=== PATIENT | female | born 1975 | race Caucasian/White ===

== ENCOUNTER 2017-11-03 11:29 | Day surgery (SDC) | payer OTHER ==
[~2017-11-03] VITALS: Ht 162.6 cm; Wt 135.2 kg
[~2017-11-03 11:29] MED LIST: ALBU90OI INH; ALBU90OI61 INH; ALPR.5 PO; AMOCLA875 PO; AZIT250 PO; Amoxicillin500 MG PO; BENZ100A PO; BUSP5 PO; Benadryl 50 mg50 MG PO; Buspirone HCl7.5 MG PO; CLAR500 PO; CODGUAEL PO; CRUTCH4 XX; CYCL10 PO; CYMBALTA; Crutch1 EACH MISC; DIVA250EC PO; DOXY100 PO; ERGO400 PO; ERYT.5TO OS; ESCI10 PO; ESCI20 PO; FERR325 PO; GUAI120S1 PO; GUAI600T33 PO; HYDACE5 PO; HYDMOR2 PO; HYDPAM100 PO; HYDR1TAB94 PO; IBUP600 PO; IBUP800 PO; INHALER; KETO10 PO; LORA1 PO; METF500 PO; MUPI2TO TOP; NAPR500 PO; Norco 10-325 T1 EACH PO; PHENERMINE; PRED20 PO; PROCODE120 PO; Percocet 5-3251 EACH PO; Prednisone20 MG PO; QUET100 PO; RXHYDMOR2 PO; RXTRAM50 PO; SULI150 PO; SUMA25 PO; Seroquel Xr50 MG PO; TRAM50 PO; TRAZ50 PO; Ultram50 MG PO; Veetids 500500 MG PO; Zithromax250 MG PO; Zofran Odt4 MG SL
[2017-11-03 13:33] LABS: BASOPHILS ABSOLUTE AUTO 0.02 K/mm3 (0.00-0.23); BASOPHILS PERCENT AUTO 0 % (0-2); EOSINOPHILS ABSOLUTE AUTO 0.12 K/mm3 (0.00-0.68); EOSINOPHILS PERCENT AUTO 2 % (0-6); Hematocrit 43.1 % (33.0-51.0); Hemoglobin 13.9 g/dL (11.5-16.0); IMMATURE GRAN ABSOLUTE AUTO 0.01 K/mm3 (0.00-0.10); IMMATURE GRAN PERCENT AUTO 0 % (0-1); LYMPHOCYTES ABSOLUTE AUTO 2.64 K/mm3 (0.84-5.20); LYMPHOCYTES PERCENT AUTO 32 % (21-46); MONOCYTES ABSOLUTE AUTO 0.54 K/mm3 (0.16-1.47); MONOCYTES PERCENT AUTO 7 % (4-13); Mean Corpuscular HGB 28.1 pg (26.0-34.0); Mean Corpuscular HGB Conc 32.3 g/dL (31.5-36.5); Mean Corpuscular Volume 87 fL (80-100); Mean Platelet Volume 10.8 fL (9.1-12.4); NEUTROPHILS ABSOLUTE AUTO 4.85 K/mm3 (1.96-9.15); NEUTROPHILS PERCENT AUTO 59 % (41-73); Platelet Count 269 K/mm3 (150-400); RDW Coefficient Variation 13.6 % (11.7-14.2); RDW Standard Deviation 43.8 fL (35.1-46.3); Red Blood Cell Count 4.94 M/mm3 (3.80-5.20); White Blood Cell Count 8.18 K/mm3 (4.00-11.30)
[2017-11-03 13:56] LABS: Alanine Aminotransfer (ALT/SGP 20 U/L (12-78); Albumin, Blood 3.3 g/dL (3.4-5.0); Albumin/Globulin Ratio 0.8 (0.8-1.8); Alk Phos 73 U/L (50-136); Anion Gap 4 mmol/L (6-16); Aspartate Aminotrans (AST/SGOT 18 U/L (12-37); Bilirubin, Total 0.5 mg/dL (0.1-1.0); Blood Urea Nitrogen 15 mg/dL (8-24); Bun/Creatinine Ratio 18.5 (12.0-20.0); CO2, Blood 30 mmol/L (21-32); Calcium, Blood 9.1 mg/dL (8.5-10.1); Chloride, Blood 104 mmol/L (98-108); Creatinine, Blood 0.81 mg/dL (0.40-1.00); Globulin, Blood 4.3 g/dL (2.2-4.0); Glomerular Filtration Rate >60 (60-); Glucose, Blood 88 mg/dL (70-99); Potassium, Blood 4.3 mmol/L (3.5-5.5); Sodium, Blood 138 mmol/L (136-145); Total Protein, Blood 7.6 g/dL (6.4-8.2)
== END 2017-11-03 13:41 | disposition home or self-care (01) ==
LOC: ORSCMMR 11:29
PROVIDERS: Internal Medicine Gastroenterology
PROC: 0DB58ZX Excision of Esophagus, Via Natural or Artificial Opening Endoscopic, Diagnostic (ICD-10-PCS; principal; 2017-11-03 13:00)
DX: R13.10 Dysphagia, unspecified (principal); K22.10 Ulcer of esophagus without bleeding; K29.80 Duodenitis without bleeding; K44.9 Diaphragmatic hernia without obstruction or gangrene; E66.01 Morbid (severe) obesity due to excess calories; Z68.43 Body mass index [BMI] 50.0-59.9, adult; J45.909 Unspecified asthma, uncomplicated; F41.9 Anxiety disorder, unspecified; F32.9 Major depressive disorder, single episode, unspecified; Z79.899 Other long term (current) drug therapy; Z87.891 Personal history of nicotine dependence
CPT/HCPCS: 36415; 80053; 82941; 85025; 88305; 88342; J7120

== ENCOUNTER → 2018-04-18 | Outpatient (CLI) | payer OTHER | LOC: LAB SRC 10:24 → LAB SHORT 10:24 | PROVIDERS: Registered Nurse | DX: Z12.4 Encounter for screening for malignant neoplasm of cervix (principal) | CPT/HCPCS: 87624; G0123 ==

== ENCOUNTER 2019-01-02 12:15 | Emergency (ER) | payer OTHER ==
[~2019-01-02] VITALS: Ht 162.6 cm; Wt 127.0 kg
== END 2019-01-02 14:09 | disposition home or self-care (01) ==
LOC: ER 12:15
DX: M25.522 Pain in left elbow (principal); G43.909 Migraine, unspecified, not intractable, without status migrainosus; F17.200 Nicotine dependence, unspecified, uncomplicated; Z79.899 Other long term (current) drug therapy
CPT/HCPCS: 73080; 99283-25

== ENCOUNTER 2020-03-28 05:53 | Emergency (ER) | payer OTHER ==
[~2020-03-28] VITALS: Ht 162.6 cm; Wt 158.8 kg
[~2020-03-28 05:53] MED LIST changes: +Ativan1 MG PO; +Bactrim Ds Tab1 EACH PO; +CEPH500 PO; +Zofran4 MG PO
[2020-03-28] MEDS ORDERED: TRAM50 PO (06:51)
== END 2020-03-28 07:01 | disposition home or self-care (01) ==
LOC: ER 05:53
DX: S61.216A Laceration without foreign body of right little finger without damage to nail, initial encounter (principal); G47.30 Sleep apnea, unspecified; G43.909 Migraine, unspecified, not intractable, without status migrainosus; F17.200 Nicotine dependence, unspecified, uncomplicated; Z79.899 Other long term (current) drug therapy; W25.XXXA Contact with sharp glass, initial encounter
CPT/HCPCS: 12002; 99282-25

== ENCOUNTER 2020-05-24 07:59 | Emergency (ER) | payer MEDICARE, OTHER ==
[~2020-05-24] VITALS: Ht 162.6 cm; Wt 145.2 kg
[2020-05-24 08:46] LABS: BASOPHILS ABSOLUTE AUTO 0.04 K/mm3 (0.00-0.23); BASOPHILS PERCENT AUTO 1 % (0-2); EOSINOPHILS ABSOLUTE AUTO 0.16 K/mm3 (0.00-0.68); EOSINOPHILS PERCENT AUTO 2 % (0-6); Hematocrit 40.2 % (33.0-51.0); Hemoglobin 11.6 g/dL (11.5-16.0); IMMATURE GRAN ABSOLUTE AUTO 0.02 K/mm3 (0.00-0.10); IMMATURE GRAN PERCENT AUTO 0 % (0-1); LYMPHOCYTES ABSOLUTE AUTO 1.88 K/mm3 (0.84-5.20); LYMPHOCYTES PERCENT AUTO 27 % (21-46); MONOCYTES PERCENT AUTO 9 % (4-13); Mean Corpuscular HGB 22.4 pg (26.0-34.0); Mean Corpuscular HGB Conc 28.9 g/dL (31.5-36.5); Mean Corpuscular Volume 78 fL (80-100); Mean Platelet Volume 10.3 fL (9.1-12.4); NEUTROPHILS ABSOLUTE AUTO 4.34 K/mm3 (1.96-9.15); NEUTROPHILS PERCENT AUTO 62 % (41-73); Platelet Count 242 K/mm3 (150-400); RDW Standard Deviation 46.9 fL (35.1-46.3); Red Blood Cell Count 5.17 M/mm3 (3.80-5.20); White Blood Cell Count 7.04 K/mm3 (4.00-11.30)
[2020-05-24 09:05] LABS: Alanine Aminotransfer (ALT/SGP 26 U/L (12-78); Albumin, Blood 3.1 g/dL (3.4-5.0); Albumin/Globulin Ratio 0.6 (0.8-1.8); Alk Phos 87 U/L (50-136); Anion Gap 5 mmol/L (6-16); Aspartate Aminotrans (AST/SGOT 26 U/L (12-37); Bilirubin, Total 0.3 mg/dL (0.1-1.0); Blood Urea Nitrogen 13 mg/dL (8-24); Bun/Creatinine Ratio 14.3 (12.0-20.0); CO2, Blood 31 mmol/L (21-32); Calcium, Blood 9.3 mg/dL (8.5-10.1); Chloride, Blood 104 mmol/L (98-108); Creatinine, Blood 0.91 mg/dL (0.40-1.00); Globulin, Blood 4.8 g/dL (2.2-4.0); Glomerular Filtration Rate >60 (60-); Glucose, Blood 134 mg/dL (70-99); Potassium, Blood 3.9 mmol/L (3.5-5.5); Sodium, Blood 140 mmol/L (136-145); Total Protein, Blood 7.9 g/dL (6.4-8.2)
[2020-05-24 10:00] LABS: Source, Urine Clean Catch
[2020-05-24 10:07] LABS: Bilirubin, Urine Neg (Neg); Blood, Urine 5+ (Neg); Glucose Qualitative, Urine Neg (Neg); Ketones, Urine Neg (Neg); Leukocyte Esterase, Urine 1+ (Neg); Nitrite, Urine Neg (Neg); Protein, Urine 2+ (Neg); Urobilinogen, Urine NORM (Normal)
[2020-05-24 10:18] LABS: U Amphetamine Screen DETECTED; U Barbituate Screen Not Detected; U Benzodiazapine Screen Not Detected; U Buprenorphine Screen Not Detected; U Cannabinoids Screen Not Detected; U Cocaine Screen Not Detected; U Methadone Screen Not Detected; U Methamphetamine Screen DETECTED; U Opiates Screen Not Detected; U Oxycodone Screen Not Detected; U Phencyclidine Screen Not Detected; U Propoxyphene Screen Not Detected
[2020-05-24 10:19] LABS: Appearance, Urine Bloody (Clear); Color, Urine Red (P-Yellow)
[2020-05-24 10:21] LABS: Bacteria Few /hpf; Red Blood Cells, Urine TNTC /hpf (0-2); Squamous Epithelial Cells Few /hpf (Few)
[2020-05-24] MEDS ORDERED: MECL25 PO (11:04)
[2020-05-24] MEDS ORDERED: ONDA4ODT MM (11:04)
== END 2020-05-24 11:32 | disposition home or self-care (01) ==
LOC: ER 07:59
PROVIDERS: Emergency Medicine
DX: R42 Dizziness and giddiness (principal); F15.10 Other stimulant abuse, uncomplicated; R11.2 Nausea with vomiting, unspecified; Z79.899 Other long term (current) drug therapy; G47.30 Sleep apnea, unspecified; Z87.891 Personal history of nicotine dependence
CPT/HCPCS: 36415; 70450; 80053; 81001; 82947; 83690; 85025; 87086; 96374; 96375; 99284-25; G0480; J2310; J2405

== ENCOUNTER 2021-06-29 02:03 | Day surgery (SDC) | payer MEDICARE, OTHER ==
[~2021-06-29 02:03] MED LIST changes: +MECL25 PO; +ONDA4ODT MM
== END 2021-06-29 23:01 | disposition home or self-care (01) ==
LOC: WOUND 02:03
DX: L97.911 Non-pressure chronic ulcer of unspecified part of right lower leg limited to breakdown of skin (principal); I87.2 Venous insufficiency (chronic) (peripheral); I73.9 Peripheral vascular disease, unspecified; R60.0 Localized edema
CPT/HCPCS: A9270; G0463

== ENCOUNTER 2021-07-06 02:51 | Day surgery (SDC) | payer MEDICARE, OTHER | END 2021-07-06 22:58 | disposition home or self-care (01) | LOC: WOUND 02:51 | DX: L97.911 Non-pressure chronic ulcer of unspecified part of right lower leg limited to breakdown of skin (principal); R60.0 Localized edema; I87.2 Venous insufficiency (chronic) (peripheral); I73.9 Peripheral vascular disease, unspecified | CPT/HCPCS: A9270 ==

== ENCOUNTER 2021-07-13 02:19 | Day surgery (SDC) | payer OTHER | END 2021-07-13 22:43 | disposition home or self-care (01) | LOC: WOUND 02:19 | DX: L97.812 Non-pressure chronic ulcer of other part of right lower leg with fat layer exposed (principal); I87.2 Venous insufficiency (chronic) (peripheral); I73.9 Peripheral vascular disease, unspecified | CPT/HCPCS: A9270 ==

== ENCOUNTER 2021-07-28 02:40 | Day surgery (SDC) | payer OTHER | END 2021-07-28 22:53 | disposition home or self-care (01) | LOC: WOUND 02:40 | DX: L97.812 Non-pressure chronic ulcer of other part of right lower leg with fat layer exposed (principal); R60.0 Localized edema; I87.2 Venous insufficiency (chronic) (peripheral); I73.9 Peripheral vascular disease, unspecified | CPT/HCPCS: A9270 ==

== ENCOUNTER 2021-08-04 02:08 | Day surgery (SDC) | payer OTHER | END 2021-08-04 23:04 | disposition home or self-care (01) | LOC: WOUND 02:08 | DX: L97.911 Non-pressure chronic ulcer of unspecified part of right lower leg limited to breakdown of skin (principal); R60.0 Localized edema; I87.2 Venous insufficiency (chronic) (peripheral); I73.9 Peripheral vascular disease, unspecified | CPT/HCPCS: A9270; G0463 ==

== ENCOUNTER 2021-08-18 04:41 | Day surgery (SDC) | payer OTHER | END 2021-08-18 23:59 | disposition home or self-care (01) | LOC: WOUND 04:41 | DX: L97.812 Non-pressure chronic ulcer of other part of right lower leg with fat layer exposed (principal); R60.0 Localized edema; I87.2 Venous insufficiency (chronic) (peripheral); I73.9 Peripheral vascular disease, unspecified | CPT/HCPCS: A9270; G0463 ==

== ENCOUNTER 2021-08-25 01:33 | Day surgery (SDC) | payer OTHER | END 2021-08-25 23:01 | disposition home or self-care (01) | LOC: WOUND 01:33 | DX: L97.812 Non-pressure chronic ulcer of other part of right lower leg with fat layer exposed (principal); R60.0 Localized edema; I87.2 Venous insufficiency (chronic) (peripheral); I73.9 Peripheral vascular disease, unspecified | CPT/HCPCS: A9270; G0463 ==

== ENCOUNTER 2021-09-01 02:32 | Day surgery (SDC) | payer OTHER | END 2021-09-01 12:00 | disposition home or self-care (01) | LOC: WOUND 02:32 | DX: L97.811 Non-pressure chronic ulcer of other part of right lower leg limited to breakdown of skin (principal); L03.115 Cellulitis of right lower limb; R60.0 Localized edema; I87.2 Venous insufficiency (chronic) (peripheral); I73.9 Peripheral vascular disease, unspecified | CPT/HCPCS: A9270; G0463 ==

== ENCOUNTER 2021-09-08 04:51 | Day surgery (SDC) | payer OTHER | END 2021-09-08 22:59 | disposition home or self-care (01) | LOC: WOUND 04:51 | DX: L97.911 Non-pressure chronic ulcer of unspecified part of right lower leg limited to breakdown of skin (principal); L03.115 Cellulitis of right lower limb; R60.0 Localized edema; I87.2 Venous insufficiency (chronic) (peripheral); I73.9 Peripheral vascular disease, unspecified | CPT/HCPCS: A9270; G0463 ==

== ENCOUNTER 2021-09-15 03:25 | Day surgery (SDC) | payer OTHER | END 2021-09-15 23:49 | disposition home or self-care (01) | LOC: WOUND 03:25 | DX: L97.812 Non-pressure chronic ulcer of other part of right lower leg with fat layer exposed (principal); L03.115 Cellulitis of right lower limb; R60.0 Localized edema; I87.2 Venous insufficiency (chronic) (peripheral); I73.9 Peripheral vascular disease, unspecified | CPT/HCPCS: A9270; G0463 ==

== ENCOUNTER 2021-09-29 02:06 | Day surgery (SDC) | payer OTHER | END 2021-09-29 23:10 | disposition home or self-care (01) | LOC: WOUND 02:06 | DX: L97.812 Non-pressure chronic ulcer of other part of right lower leg with fat layer exposed (principal); L03.115 Cellulitis of right lower limb; R60.0 Localized edema; I87.2 Venous insufficiency (chronic) (peripheral); I73.9 Peripheral vascular disease, unspecified | CPT/HCPCS: G0463 ==

== ENCOUNTER → 2021-11-17 | Outpatient (CLI) | payer OTHER ==
[2021-11-17 17:41] LABS: BASOPHILS ABSOLUTE AUTO 0.05 K/mm3 (0.00-0.23); BASOPHILS PERCENT AUTO 1 % (0-2); EOSINOPHILS ABSOLUTE AUTO 0.17 K/mm3 (0.00-0.68); EOSINOPHILS PERCENT AUTO 2 % (0-6); Hematocrit 43.4 % (33.0-51.0); Hemoglobin 12.4 g/dL (11.5-16.0); IMMATURE GRAN ABSOLUTE AUTO 0.02 K/mm3 (0.00-0.10); IMMATURE GRAN PERCENT AUTO 0 % (0-1); LYMPHOCYTES ABSOLUTE AUTO 2.35 K/mm3 (0.84-5.20); LYMPHOCYTES PERCENT AUTO 29 % (21-46); MONOCYTES ABSOLUTE AUTO 0.49 K/mm3 (0.16-1.47); MONOCYTES PERCENT AUTO 6 % (4-13); Mean Corpuscular HGB 21.1 pg (26.0-34.0); Mean Corpuscular HGB Conc 28.6 g/dL (31.5-36.5); Mean Corpuscular Volume 74 fL (80-100); Mean Platelet Volume 10.8 fL (9.1-12.4); NEUTROPHILS PERCENT AUTO 62 % (41-73); Platelet Count 315 K/mm3 (150-400); RDW Coefficient Variation 19.2 % (11.7-14.2); RDW Standard Deviation 47.5 fL (35.1-46.3); Red Blood Cell Count 5.87 M/mm3 (3.80-5.20); White Blood Cell Count 7.98 K/mm3 (4.00-11.30)
[2021-11-17 18:00] LABS: Alanine Aminotransfer (ALT/SGP 36 U/L (12-78); Albumin, Blood 3.1 g/dL (3.4-5.0); Albumin/Globulin Ratio 0.7 (0.8-1.8); Alk Phos 122 U/L (40-126); Anion Gap 8 mmol/L (6-16); Aspartate Aminotrans (AST/SGOT 29 U/L (12-37); Bilirubin, Total 0.5 mg/dL (0.1-1.0); Blood Urea Nitrogen 11 mg/dL (8-24); Bun/Creatinine Ratio 12.4 (12.0-20.0); CO2, Blood 33 mmol/L (21-32); Calcium, Blood 9.7 mg/dL (8.5-10.1); Chloride, Blood 98 mmol/L (98-108); Cholesterol 171 mg/dL (50-200); Creatinine, Blood 0.89 mg/dL (0.40-1.00); Globulin, Blood 4.7 g/dL (2.2-4.0); Glomerular Filtration Rate >60 (60-); Glucose, Blood 314 mg/dL (70-99); HDL Cholesterol 57 mg/dL (>39); LDL/HDL RATIO 1.6; Low Density Lipoprotein Chol 91 mg/dL (<110); Potassium, Blood 4.6 mmol/L (3.5-5.5); Sodium, Blood 139 mmol/L (136-145); Thyroid Stimulating Hormone 1.822 uIU/mL (0.360-4.800); Total Protein, Blood 7.8 g/dL (6.4-8.2); Triglycerides 115 mg/dL (30-160); Very Low Density Lipoprot Chol 23 mg/dL (6-32)
== END ==
LOC: LAB SHORT 17:17
PROVIDERS: Physician Assistant
DX: R11.0 Nausea (principal); R53.83 Other fatigue; E66.9 Obesity, unspecified; R73.9 Hyperglycemia, unspecified
CPT/HCPCS: 80053; 80061; 83036; 83690; 84443; 85025

== ENCOUNTER → 2021-11-30 | Outpatient (CLI) | payer OTHER ==
[2021-11-30 18:11] LABS: Source, Urine Voided
[2021-11-30 19:33] LABS: Blood, Urine 5+ (Neg); Glucose Qualitative, Urine Neg (Neg); Ketones, Urine 1+ (Neg); Leukocyte Esterase, Urine 1+ (Neg); Nitrite, Urine Pos (Neg); Protein, Urine 3+ (Neg); Urobilinogen, Urine 2+ (Normal)
[2021-11-30 19:57] LABS: Appearance, Urine Cloudy (Clear); Bilirubin, Urine 1+ (Neg); Color, Urine Amber (P-Yellow); Red Blood Cells, Urine 50-100 /hpf (0-2)
[2021-11-30 19:58] LABS: Amorphous Heavy (0-Heavy); Bacteria Many /hpf; Granular Casts Rare /lpf (0); Hyaline Casts Rare /lpf (0-2); Squamous Epithelial Cells Rare /hpf (Few)
== END ==
LOC: LAB SHORT 16:00
PROVIDERS: Registered Nurse
DX: R30.0 Dysuria (principal)
CPT/HCPCS: 81001

== ENCOUNTER 2022-09-04 12:48 | Emergency (ER) | payer OTHER ==
[~2022-09-04] VITALS: Ht 162.6 cm; Wt 136.1 kg
[2022-09-04] MEDS ORDERED: SULTRIDS PO (15:18)
== END 2022-09-04 16:09 | disposition home or self-care (01) ==
LOC: ER 12:48
DX: L03.113 Cellulitis of right upper limb (principal); Z79.899 Other long term (current) drug therapy; Z87.891 Personal history of nicotine dependence
CPT/HCPCS: 73120; A9270; J1885

== ENCOUNTER 2023-01-12 00:02 | Emergency (ER) | payer OTHER ==
[~2023-01-12] VITALS: Ht 162.6 cm; Wt 136.1 kg
[~2023-01-12 00:02] MED LIST changes: +SULTRIDS PO
[2023-01-12 01:30] LABS: BASOPHILS ABSOLUTE AUTO 0.06 K/mm3 (0.00-0.23); BASOPHILS PERCENT AUTO 0 % (0-2); EOSINOPHILS ABSOLUTE AUTO 0.08 K/mm3 (0.00-0.68); EOSINOPHILS PERCENT AUTO 0 % (0-6); Hematocrit 43.7 % (33.0-51.0); Hemoglobin 13.4 g/dL (11.5-16.0); IMMATURE GRAN ABSOLUTE AUTO 0.11 K/mm3 (0.00-0.10); IMMATURE GRAN PERCENT AUTO 1 % (0-1); LYMPHOCYTES ABSOLUTE AUTO 1.29 K/mm3 (0.84-5.20); LYMPHOCYTES PERCENT AUTO 7 % (21-46); MONOCYTES ABSOLUTE AUTO 1.65 K/mm3 (0.16-1.47); MONOCYTES PERCENT AUTO 9 % (4-13); Mean Corpuscular HGB 24.5 pg (26.0-34.0); Mean Corpuscular HGB Conc 30.7 g/dL (31.5-36.5); Mean Corpuscular Volume 80 fL (80-100); Mean Platelet Volume 10.8 fL (9.1-12.4); NEUTROPHILS ABSOLUTE AUTO 15.39 K/mm3 (1.96-9.15); NEUTROPHILS PERCENT AUTO 83 % (41-73); Platelet Count 273 K/mm3 (150-400); RDW Coefficient Variation 15.5 % (11.7-14.2); RDW Standard Deviation 44.2 fL (35.1-46.3); Red Blood Cell Count 5.46 M/mm3 (3.80-5.20); White Blood Cell Count 18.58 K/mm3 (4.00-11.30)
[2023-01-12 01:50] LABS: Albumin, Blood 2.9 g/dL (3.4-5.0); Albumin/Globulin Ratio 0.6 (0.8-1.8); Bilirubin, Total 0.9 mg/dL (0.1-1.0); Calcium, Blood 8.5 mg/dL (8.5-10.1); Creatinine, Blood 0.77 mg/dL (0.40-1.00); Globulin, Blood 5.1 g/dL (2.2-4.0); Potassium, Blood 3.9 mmol/L (3.5-5.5)
[2023-01-12 02:07] LABS: Influenza A, PCR NEGATIVE (NEGATIVE); Influenza B, PCR NEGATIVE (NEGATIVE); Resp Syncytial Virus, PCR NEGATIVE (NEGATIVE); SARS-Cov-2 (COVID-19) PCR, MMC NEGATIVE (NEGATIVE)
[2023-01-12] MEDS ORDERED: ALBU90OI INH (02:36)
[2023-01-12] MEDS ORDERED: Zithromax250 MG PO (02:36)
[2023-01-12] MEDS ORDERED: Prednisone20 MG PO (02:36)
[2023-01-13] MEDS ORDERED: METF500 PO (02:43)
[2023-01-13] MEDS ORDERED: INSULIN GL100 UNIT/3 SC (02:45)
== END 2023-01-12 03:03 | disposition home or self-care (01) ==
LOC: ER 00:02
PROVIDERS: Emergency Medicine
DX: J44.1 Chronic obstructive pulmonary disease with (acute) exacerbation (principal); F17.210 Nicotine dependence, cigarettes, uncomplicated; Z20.822 Contact with and (suspected) exposure to COVID-19; Z79.899 Other long term (current) drug therapy
CPT/HCPCS: 0241U; 71045; 80053; 83880; 84484; 85025; 93005; 93010; 94640; 94664; A9270; J1885; J2930

== ENCOUNTER 2023-01-12 20:20 | Inpatient (IN) | payer OTHER ==
[~2023-01-12] VITALS: Ht 162.6 cm; Wt 134.1 kg
[2023-01-12 21:10] LABS: BASOPHILS ABSOLUTE AUTO 0.07 K/mm3 (0.00-0.23); BASOPHILS PERCENT AUTO 0 % (0-2); EOSINOPHILS ABSOLUTE AUTO 0.05 K/mm3 (0.00-0.68); EOSINOPHILS PERCENT AUTO 0 % (0-6); Hemoglobin 12.7 g/dL (11.5-16.0); IMMATURE GRAN ABSOLUTE AUTO 0.17 K/mm3 (0.00-0.10); IMMATURE GRAN PERCENT AUTO 1 % (0-1); LYMPHOCYTES ABSOLUTE AUTO 1.95 K/mm3 (0.84-5.20); LYMPHOCYTES PERCENT AUTO 8 % (21-46); MONOCYTES ABSOLUTE AUTO 1.37 K/mm3 (0.16-1.47); MONOCYTES PERCENT AUTO 6 % (4-13); Mean Corpuscular HGB 24.6 pg (26.0-34.0); Mean Corpuscular Volume 80 fL (80-100); Mean Platelet Volume 10.5 fL (9.1-12.4); NEUTROPHILS ABSOLUTE AUTO 19.66 K/mm3 (1.96-9.15); NEUTROPHILS PERCENT AUTO 85 % (41-73); Platelet Count 292 K/mm3 (150-400); RDW Coefficient Variation 15.3 % (11.7-14.2); RDW Standard Deviation 44.3 fL (35.1-46.3); Red Blood Cell Count 5.16 M/mm3 (3.80-5.20); White Blood Cell Count 23.27 K/mm3 (4.00-11.30)
[2023-01-12 21:38] LABS: Albumin, Blood 2.6 g/dL (3.4-5.0); Albumin/Globulin Ratio 0.5 (0.8-1.8); Bilirubin, Total 0.5 mg/dL (0.1-1.0); Bun/Creatinine Ratio 30.5 (12.0-20.0); Calcium, Blood 8.9 mg/dL (8.5-10.1); Creatinine, Blood 0.62 mg/dL (0.40-1.00); Globulin, Blood 5.2 g/dL (2.2-4.0); Potassium, Blood 4.3 mmol/L (3.5-5.5); Total Protein, Blood 7.8 g/dL (6.4-8.2)
[2023-01-13] MEDS ORDERED: METF500 PO (02:43)
[2023-01-13] MEDS ORDERED: INSULIN GL100 UNIT/3 SC (02:45)
--- NOTE | 2023-01-13 03:30 | NUR ---
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 PT ADMITTED FOR PNA. LUNG SOUNDS VERY COARSE WITH CRACKLES THROUGHOUT BUT WORSE ON L SIDE. PT ARRIVED ON 3L O2 VIA NC DUE TO DESATTING WHILE SLEEPING. PER ER NURSE, O2 SATS WOULD IMPROVE ONCE PT AWAKE. PT AAOX4 AND PLEASANT, STANDBY ASSIST IN ROOM. DIFFICULT TO GET DETAILED HEALTH HX PT IS VERY TIRED AND WORN OUT AND FALLING ASLEEP DURING ADMISSION ASSESSMENT. PT TO CONTINUE ORDERED ABX AND STEROIDS. OXYGEN 98% ON 3L O2, OTHER VSS. WILL CONTINUE TO MONITOR.
[2023-01-13 10:13] LABS: BASOPHILS ABSOLUTE AUTO 0.03 K/mm3 (0.00-0.23); BASOPHILS PERCENT AUTO 0 % (0-2); EOSINOPHILS PERCENT AUTO 0 % (0-6); Hemoglobin 12.2 g/dL (11.5-16.0); IMMATURE GRAN ABSOLUTE AUTO 0.16 K/mm3 (0.00-0.10); IMMATURE GRAN PERCENT AUTO 1 % (0-1); LYMPHOCYTES ABSOLUTE AUTO 1.01 K/mm3 (0.84-5.20); LYMPHOCYTES PERCENT AUTO 7 % (21-46); MONOCYTES ABSOLUTE AUTO 0.44 K/mm3 (0.16-1.47); MONOCYTES PERCENT AUTO 3 % (4-13); Mean Corpuscular HGB 24.9 pg (26.0-34.0); Mean Corpuscular HGB Conc 30.5 g/dL (31.5-36.5); Mean Corpuscular Volume 82 fL (80-100); Mean Platelet Volume 10.3 fL (9.1-12.4); NEUTROPHILS ABSOLUTE AUTO 13.91 K/mm3 (1.96-9.15); NEUTROPHILS PERCENT AUTO 90 % (41-73); Platelet Count 217 K/mm3 (150-400); RDW Coefficient Variation 15.5 % (11.7-14.2); RDW Standard Deviation 46.6 fL (35.1-46.3); Red Blood Cell Count 4.89 M/mm3 (3.80-5.20); White Blood Cell Count 15.55 K/mm3 (4.00-11.30)
[2023-01-13 10:29] LABS: Albumin, Blood 2.5 g/dL (3.4-5.0); Albumin/Globulin Ratio 0.5 (0.8-1.8); Bilirubin, Total 0.3 mg/dL (0.1-1.0); Calcium, Blood 8.8 mg/dL (8.5-10.1); Creatinine, Blood 0.6 mg/dL (0.40-1.00); Potassium, Blood 3.9 mmol/L (3.5-5.5); Total Protein, Blood 7.5 g/dL (6.4-8.2)
--- NOTE | 2023-01-13 16:13 | NUR ---
SHIFT SUMMARY: PNEUMONIA PATIENT IS MORE AWAKE/ALERT THIS AFTERNOON. PATIENT HAD A POWERGLIDE PLACED DUE TO NO PERIPHERAL VEIN ACCESS FROM DEHYDRATION/INCREASED FAT TISSUE. PATIENT IS ON 2L NC WITH >90% OXYGEN SATS. SHE REPORTS SHORTNESS OR BREATH WITH AMBULATION BUT ONCE AT REST THAT FEELING SLOWLY GOES AWAY. SHE IS TOLERATING PO INTAKE AND IS VOIDING. RT HAS COME TO GIVE PATIENT ALBUTEROL, NEBULIZER, AND DULERA TREATMENT PRN. PATIENT CALLS APPROPRIATELY. SHE IS LAYING IN BED WATCHING TV WITH CALL LIGHT IN REACH.
--- NOTE | 2023-01-13 23:14 | NUR ---
REPORT GIVEN TO TYREE IBARRA. PT LYINGIN BED ON HER SIDE FOR COMFORT. IN SOME GASTRIC PAIN, PT STATES SHE BELIEVES IT IS BECAUSE SHE HAS NOT HAD PROTONIX. PROTONIX NOT IN EMAR NOR ON PT HOME MEDS LIST. PT GIVEN ZOFRAN AND PAIN MEDICATION AND WAS ABLE TO SLEEP. BED IN LOWEST POSITION AND CALL LIGHT IN REACH.
--- NOTE | 2023-01-14 01:31 | NUR ---
ASSUMED CARE @2300 PATIENT LUNG SOUNDS DIM W/ WHEEZES T/O. CURRENTLY ON 3L 02 NC. CONT PULSE OX IN PLACE SATS @ 93-94%. SBA TO BSC. VOIDS EASILY. PATIENT IS AOX4, SLEEPY BUT WAKES EASILY. CALL LIGHT IS IN REACH, WILL CTM.
--- NOTE | 2023-01-14 05:52 | NUR ---
SUMMARY NO ACUTE EVENTS SINCE LAST NOTE. PATIENT IS RESTING COMFORTABLY AT THIS TIME. 3L 02 NC. SATS ABOVE 93%. BIOX IN PLACE. PATIENT IS A SBA TO BSC VOIDS T/O SHIFT. DENIES CHEST PAIN. HAS SOB ON EXERTION. WILL CTM AND TREAT PER ORDERS, CALL LIGHT IN REACH.
--- NOTE | 2023-01-14 13:31 | NUR ---
PT C/O CP 06/08. DR. MAN NOTIFIED BY PHONE. ORDERS TO TREAT HTN AND TO REASSESS CHEST PAIN AND ORDER EGK IF CP PERSISTS.
--- NOTE | 2023-01-14 14:26 | NUR ---
DR. MAN INSTRUCTED THIS RN TO PRESS ON THE PATIENT'S CHEST WHERE SHE IS C/O PAIN AND IF THE PAIN INCREASES WITH THE PRESSURE THAN TO NOT ORDER AN EKG. THIS RN DID SO AND PRESSED ON THE PATIENT CHEST BELOW HER BREAST AND SHE JUMPED IN PAIN AND STATED THAT THE PAIN DRASTICALLY INCREASED WHEN PALPATED. DR. MAN ORDERED TORADOL AND THIS WAS OFFERED TO THE PATIENT WAS SLEEPING AND HAD TO BE AWAKENED TO ASSESS HER PAIN AND SHE STATES IT HAS LESSENED OVER TIME.
--- NOTE | 2023-01-14 17:22 | NUR ---
PATIENT IS ALERT AND ORIENTED AND COOPERATIVE WITH CARE. PATIENT HAS BEEN TITRATEDTO 1L O2 VIA NC BY RT. SHE HAS BEEN GETTING BREATHING TREATMENTS T/O THE SHIFT. PATIENT WAS MEDICATED WITH LOSARTAN FOR HTN THIS AFTERNOON. AFTER MULTIPLE READINGS WITH HER SYSTOLIC BP GREATER THAN 170, THIS RN CHANGED THE BLOOD PRESSURE CUFF AND THE READING THEREAFTER HAVE BEEN IN THE 140'S SYSTOLIC. PATIENT C/O EPIGASTRIC PAIN THAT INCREASED WHEN PALPATED THAT RESOLVED ON IT'S OWN. THE PATIENT'S MOTHER VISTED THIS SHIFT. WILL CONINUE TO MONITOR
--- NOTE | 2023-01-15 06:07 | NUR ---
SHIFT SUMMARY PT A&OX4, AND COOPERATIVE WITH CARE. NO ACUTE CHANGES. PT DID NOT REQUIRE PAIN COVERAGE THIS SHIFT. BREATHING TREATMENTS T/O SHIFT, CURRENTLY ON 1L NC. TOLERATING PO INTAKE. STILL AWAITING SPUTUM SAMPLE. CALLS APPROPRIATELY, CALL WITHIN REACH.
--- NOTE | 2023-01-15 17:22 | NUR ---
SUMMARY NO ACUTE CHANGES T/O SHIFT. PT SLEPT MOST OF DAY. ENCOURAGED PT TO SIT UP OR WALK IN ROOM BUT PT SLEPT. DOES AMBULATE TO RESTROOM AND BSC. CALL LIGHT IN REACH.
--- NOTE | 2023-01-15 19:06 | NUR ---
BEDSIDE REPORT GIVEN TO SAAD Mercado RN ENCOURAGED PT TO GET OOB, SIT UP IN CHAIR AND USE IS.
[2023-01-16 04:02] LABS: BASOPHILS ABSOLUTE AUTO 0.05 K/mm3 (0.00-0.23); BASOPHILS PERCENT AUTO 1 % (0-2); EOSINOPHILS PERCENT AUTO 0 % (0-6); Hematocrit 39.4 % (33.0-51.0); Hemoglobin 12.2 g/dL (11.5-16.0); IMMATURE GRAN ABSOLUTE AUTO 0.24 K/mm3 (0.00-0.10); IMMATURE GRAN PERCENT AUTO 2 % (0-1); LYMPHOCYTES ABSOLUTE AUTO 1.31 K/mm3 (0.84-5.20); LYMPHOCYTES PERCENT AUTO 13 % (21-46); MONOCYTES ABSOLUTE AUTO 0.38 K/mm3 (0.16-1.47); MONOCYTES PERCENT AUTO 4 % (4-13); Mean Corpuscular HGB 24.9 pg (26.0-34.0); Mean Corpuscular Volume 80 fL (80-100); Mean Platelet Volume 10.3 fL (9.1-12.4); NEUTROPHILS ABSOLUTE AUTO 8.44 K/mm3 (1.96-9.15); NEUTROPHILS PERCENT AUTO 81 % (41-73); Platelet Count 258 K/mm3 (150-400); RDW Coefficient Variation 15.1 % (11.7-14.2); White Blood Cell Count 10.42 K/mm3 (4.00-11.30)
[2023-01-16 04:17] LABS: Bun/Creatinine Ratio 35.7 (12.0-20.0); Calcium, Blood 8.8 mg/dL (8.5-10.1); Creatinine, Blood 0.64 mg/dL (0.40-1.00); Potassium, Blood 4.3 mmol/L (3.5-5.5)
--- NOTE | 2023-01-16 05:07 | NUR ---
SHIFT SUMMARY PT A&OX4, AND COOPERATIVE WITH CARE. NO ACUTE CHANGES, VSS. RESTED MAJORITY OF SHIFT. TOLERATING PO INTAKE. INDEPENDENT TO BSC. 1L NC. SPUTUM SAMPLE WAS SENT TO LAB, BUT CONTAMINATED WITH UPPER RESP MAGDA. LAB REQUESTED NEW SAMPLE. CALLS APPROPRIATELY, CALL LIGHT WITHIN REACH.
[2023-01-16] MEDS ORDERED: AZIT250 PO (15:31)
[2023-01-16] MEDS ORDERED: GUAI600T33 PO (15:32)
[2023-01-16] MEDS ORDERED: LOSA25 PO (15:32)
[2023-01-16] MEDS ORDERED: CEFD300 PO (15:33)
[2023-01-16] MEDS ORDERED: Prednisone10 MG (15:52)
--- NOTE | 2023-01-16 19:15 | NUR ---
DISCHARGE SUMMARY S/P PNEUMONIA, A/OX4, VSS, TOLERATING PO, INDEPENDENT IN HER ROOM, VOIDING AND PASSING FLATUS. DISCUSSED DISCHARGE INSTRUCTIONS WITH THE PATIENT AT APPROXIMATELY 1620 INCLUDING HOME CARE, MEDICATIONS, AND FOLLOW UP APPOINTMENT WITH HER PRIMARY CARE PROVIDER. SHE HAD NO QUESTIONS BUT STATED SHE HAD TO CALL FOR A RIDE HOME, IV ACCESS REMOVED AT THAT TIME. PT LEFT SHORTLY AFTER HER RIDE ARRIVED JUST AFTER 1900 INDEPENDENTLY WITHOUT INCIDENT. PRESCRIPTIONS FAXED TO [facility].
== END 2023-01-16 19:15 | disposition home or self-care (01) | DRG 871 ==
LOC: ER 20:20 → SURS 01-13 00:32 → ERHOLD 01-13 00:32 → SURS 01-13 00:32
PROVIDERS: Student in an Organized Health Care Education/Training Program; ADMIT Internal Medicine
DX: A41.9 Sepsis, unspecified organism (principal); J18.9 Pneumonia, unspecified organism; J96.21 Acute and chronic respiratory failure with hypoxia; J44.0 Chronic obstructive pulmonary disease with (acute) lower respiratory infection; J44.1 Chronic obstructive pulmonary disease with (acute) exacerbation; Z68.43 Body mass index [BMI] 50.0-59.9, adult; G43.909 Migraine, unspecified, not intractable, without status migrainosus; R65.20 Severe sepsis without septic shock; G47.33 Obstructive sleep apnea (adult) (pediatric); E66.01 Morbid (severe) obesity due to excess calories; M94.0 Chondrocostal junction syndrome [Tietze]; F32.A Depression, unspecified; E11.9 Type 2 diabetes mellitus without complications; F17.210 Nicotine dependence, cigarettes, uncomplicated; Z71.6 Tobacco abuse counseling; Z28.21 Immunization not carried out because of patient refusal; Z98.890 Other specified postprocedural states; Z98.51 Tubal ligation status; Z79.2 Long term (current) use of antibiotics; Z79.51 Long term (current) use of inhaled steroids; Z79.52 Long term (current) use of systemic steroids; Z79.899 Other long term (current) drug therapy
CPT/HCPCS: 36415; 71046; 71260; 80048; 80053; 82947; 83605; 83690; 85025; 87040; 93005; 93010; 94640; 94664; 94760; 96365; 96375; 99285-25; A9270; C1751; J0456; J0696; J1650; J1815; J1885; J2405; J2930; J7030; J7050; Q9967

== ENCOUNTER 2024-11-15 14:13 | Emergency (ER) | payer OTHER ==
[~2024-11-15] VITALS: Ht 165.1 cm; Wt 104.3 kg
[~2024-11-15 14:13] MED LIST changes: +CEFD300 PO; +INSULIN GL100 UNIT/3 SC; +LOSA25 PO; +Prednisone10 MG
[2024-11-15 16:24] LABS: BASOPHILS ABSOLUTE AUTO 0.05 K/mm3 (0.00-0.23); BASOPHILS PERCENT AUTO 1 % (0-2); EOSINOPHILS ABSOLUTE AUTO 0.15 K/mm3 (0.00-0.68); EOSINOPHILS PERCENT AUTO 2 % (0-6); Hematocrit 42.4 % (33.0-51.0); Hemoglobin 13.9 g/dL (11.5-16.0); IMMATURE GRAN ABSOLUTE AUTO 0.01 K/mm3 (0.00-0.10); IMMATURE GRAN PERCENT AUTO 0 % (0-1); LYMPHOCYTES ABSOLUTE AUTO 2.24 K/mm3 (0.84-5.20); LYMPHOCYTES PERCENT AUTO 29 % (21-46); MONOCYTES ABSOLUTE AUTO 0.67 K/mm3 (0.16-1.47); MONOCYTES PERCENT AUTO 9 % (4-13); Mean Corpuscular HGB 28.4 pg (26.0-34.0); Mean Corpuscular HGB Conc 32.8 g/dL (31.5-36.5); Mean Corpuscular Volume 87 fL (80-100); Mean Platelet Volume 10.3 fL (9.1-12.4); NEUTROPHILS PERCENT AUTO 59 % (41-73); Platelet Count 239 K/mm3 (150-400); RDW Coefficient Variation 13.5 % (11.7-14.2); RDW Standard Deviation 42.5 fL (35.1-46.3); Red Blood Cell Count 4.89 M/mm3 (3.80-5.20); White Blood Cell Count 7.62 K/mm3 (4.00-11.30)
[2024-11-15 16:45] LABS: Albumin, Blood 2.9 g/dL (3.4-5.0); Albumin/Globulin Ratio 0.7 (0.8-1.8); Bilirubin, Total 0.5 mg/dL (0.1-1.0); Bun/Creatinine Ratio 18.6 (12.0-20.0); Calcium, Blood 9.6 mg/dL (8.5-10.1); Creatinine, Blood 0.81 mg/dL (0.40-1.00); Globulin, Blood 4.2 g/dL (2.2-4.0); Potassium, Blood 4.3 mmol/L (3.5-5.5); Total Protein, Blood 7.1 g/dL (6.4-8.2)
[2024-11-15] MEDS ORDERED: HYDROmorphone HCl/Pf 1MG SYR IV ONE (17:45)
[2024-11-15] MEDS ORDERED: Ondansetron HCl 2 MG / ML 2ML Vial IV ONE (17:45)
[2024-11-15 18:07] LABS: Source, Urine Clean Catch
[2024-11-15 18:14] LABS: Appearance, Urine Hazy (Clear); Bilirubin, Urine Neg (Neg); Blood, Urine Neg (Neg); Glucose Qualitative, Urine Neg (Neg); Ketones, Urine Neg (Neg); Leukocyte Esterase, Urine 1+ (Neg); Nitrite, Urine Pos (Neg); Protein, Urine Neg (Neg); Urobilinogen, Urine NORM (Normal)
[2024-11-15] MEDS ORDERED: Lidocaine 2% Viscous Soln 15 ML UDC PO ONE (18:20)
[2024-11-15] MEDS ORDERED: Mag Hydrox/AL Hydrox/Simeth 30 ML UDC PO ONE (18:20)
[2024-11-15 18:21] LABS: Color, Urine Pale Yellow (P-Yellow)
[2024-11-15 18:22] LABS: Bacteria Many /hpf; Red Blood Cells, Urine 0-2 /hpf (0-2); Squamous Epithelial Cells Mod /hpf (Few)
[2024-11-15] MEDS ORDERED: ONDA4ODT MM (19:57)
[2024-11-15] MEDS ORDERED: CEPH500 PO (19:57)
[2024-11-15] MEDS ORDERED: Cephalexin Monohydrate 500 MG Cap PO ONE (20:00)
[2024-11-15 20:08] VITALS: BP 116/87
== END 2024-11-15 20:06 | disposition home or self-care (01) ==
LOC: ER 14:13
PROVIDERS: Student in an Organized Health Care Education/Training Program
DX: K80.20 Calculus of gallbladder without cholecystitis without obstruction (principal); N30.00 Acute cystitis without hematuria; K22.89 Other specified disease of esophagus; J44.9 Chronic obstructive pulmonary disease, unspecified; G43.909 Migraine, unspecified, not intractable, without status migrainosus; G47.30 Sleep apnea, unspecified; E11.9 Type 2 diabetes mellitus without complications; I10 Essential (primary) hypertension; Z87.891 Personal history of nicotine dependence; Z79.52 Long term (current) use of systemic steroids; Z79.84 Long term (current) use of oral hypoglycemic drugs; Z79.899 Other long term (current) drug therapy
CPT/HCPCS: 74177; 76705; 80053; 81001; 81025; 83690; 84484; 85025; 87077; 87086; 87186; 93005; 93010; 96374; 99284-25; A9270; J1171; J2405; Q9967